=== PATIENT | female | born 1980 | race Caucasian/White ===

== ENCOUNTER 2023-08-16 08:00 | Outpatient (CLI) | payer OTHER ==
[2023-08-16 10:07] LABS: HEMATOCRIT 29.7 % (36.0-45.00); MEAN CELL VOLUME 80.3 fL (80.00-100.00); MEAN CORPUSCULAR HGB CONC 32.2 g/dl (32.0-36.0); RED CELL DISTRIBUTION WIDTH 16.6 % (11.5-14.5)
[2023-08-16 10:10] LABS: HEMOGLOBIN 9.5 g/dL (12.0-15.00); MEAN CORPUSCULAR HEMOGLOBIN 25.6 pg (27.00-32.0)
[2023-08-16 10:11] LABS: PLATELET COUNT 719 K/uL (150-450)
[2023-08-16 10:38] LABS: ALBUMIN 3.1 gm/dL (3.4-5.0); BILIRUBIN TOTAL 0.48 mg/dL (0.3-1.2); CALCIUM 9.2 mg/dL (8.5-10.1); CREATININE SERUM 0.62 mg/dL (0.55-1.02); GFR 106.61; POTASSIUM 4.1 mEq/L (3.5-5.1); TOTAL PROTEIN 7.1 gm/dL (6.4-8.2)
== END 2023-08-16 15:57 | disposition home or self-care (01) ==
LOC: SONOGRAMA 08:00
DX: R10.9 Unspecified abdominal pain (principal)